=== PATIENT | male | born 1970 | race Caucasian/White ===

== ENCOUNTER → 2019-09-11 | Outpatient (CLI) | payer BC ==
--- NOTE | 2019-09-12 12:02 | RAD ---
EXAM DESCRIPTION: Chest,2 Views CLINICAL HISTORY: ABNORMAL BREATH SOUNDS COMPARISON: None TECHNIQUE: PA/lateral FINDINGS: There is no acute appearing cardiac or pulmonary abnormality. Heart size is normal with normal pulmonary vascularity. No pleural effusion or pneumothorax. Lungs are clear with no consolidating infiltrate. Lateral view shows intact sternum and T-spine. IMPRESSION: No acute process is identified in the chest. Electronically signed by: Delroy Dobbins MD 09/12/2019 6:48 AM CDT
--- NOTE | 2019-09-12 12:03 | RAD ---
EXAM DESCRIPTION: Abdomen Flat Upright CLINICAL HISTORY: 48 years Male, UNEXPLAINED WEIGHT LOSS COMPARISON: None. FINDINGS: Moderate amount of fecal material in the colon. Lung bases are clear. No visceromegaly or mass. No abnormal calcifications. Bones are unremarkable. IMPRESSION: Negative. Electronically signed by: Delroy Dobbins MD 09/12/2019 6:49 AM CDT
== END ==
LOC: YCFC.O 16:33
PROVIDERS: ATTEND Nurse Practitioner Family
DX: R63.4 Abnormal weight loss (principal); R09.89 Other specified symptoms and signs involving the circulatory and respiratory systems